=== PATIENT | female | born 1945 | race Caucasian/White ===

== ENCOUNTER 2017-01-30 19:41 | Emergency (ER) | payer MEDICARE, OTHER ==
[2017-01-30 19:45] VITALS: BP 149/49
== END 2017-01-30 19:50 | disposition left against medical advice (07) ==
LOC: CC.ED 19:41
DX: Z53.21 Procedure and treatment not carried out due to patient leaving prior to being seen by health care provider (principal)

== ENCOUNTER 2017-11-11 08:33 | Emergency (ER) | payer MEDICARE, OTHER ==
[2017-11-11 08:47] VITALS: BP 124/59
[2017-11-11] MEDS: Diphtheria,Pertussis(Acell),Tetanus Vaccine 0.5 ML Syringe IM ONE (09:27)
--- NOTE | 2017-11-11 09:45 | EDM.PDOC ---
ED HPI GENERAL MEDICAL PROBLEM - General Chief Complaint: Upper Extremity Injury/Pain Stated Complaint: Fall, rib and elbow pain Time Seen by Provider: 11/11/17 09:11 Source of Information: Reports: Patient History Limitations: Reports: No Limitations - History of Present Illness INITIAL COMMENTS - FREE TEXT/NARRATIVE: This patient is a 72 year old female that presents to the ER. Patient reports that she was walking down the steps last night at 10pm when she missed a step and fell down one step. Patient reports landing on her left side. Patient reports left lateral chest pain from fall and left upper and lower arm pain. Patient denies hitting her head, loc, n, v, vision changes, neck pain, sob, back pain, abd pain, urinary/bowel incontinence or changes. Patient is alert and oriented. Pulses +2, cap refill <2 sec, sensory intact. Neurovascular intact. ROM of the LUE is intact, but painful. Onset Date: 11/10/17 Onset Time: 22:00 Location: Reports: Chest, Upper Extremity, Left Front/Back Body Image: 1 - pain 2 - pain Quality: Reports: Ache Severity: Moderate Improves with: Reports: Immobilization Worsens with: Reports: Movement Associated Symptoms: Denies: Confusion, Chest Pain, Cough, cough w sputum, Diaphoresis, Fever/Chills, Headaches, Loss of Appetite, Malaise, Nausea/Vomiting , Rash, Seizure, Shortness of Breath, Syncope, Weakness Right Elbow Pain Score (Numeric/FACES): 8 - Related Data Allergies Allergy/AdvReac Type Severity Reaction Status Date / Time acetaminophen Allergy Nausea and Verified 11/11/17 08:35 [From Tylenol-Codeine #3] Vomiting ceftriaxone sodium Allergy Rash Verified 11/11/17 08:35 [From Rocephin] codeine phosphate Allergy Nausea and Verified 11/11/17 08:35 [From Tylenol-Codeine #3] Vomiting levofloxacin [From Levaquin] Allergy Rash Verified 11/11/17 08:35 pentazocine lactate Allergy Vomiting Verified 11/11/17 08:35 [From Talwin] propoxyphene HCl Allergy Vomiting Verified 11/11/17 08:35 [From Darvon] Home Meds: Home Meds Ascorbic Acid [Vitamin C] 1,000 mg PO DAILY 10/28/14 [History] Cholecalciferol (Vitamin D3) [Vitamin D3] 4,000 unit PO BEDTIME 10/28/14 [ History] Lisinopril/Hydrochlorothiazide [Lisinopril-Hctz 10-12.5 mg Tab] 12.5 mg PO BEDTIME 10/28/14 [History] Magnesium 500 mg PO DAILY 10/28/14 [History] Meloxicam 15 mg PO DAILY 10/28/14 [History] Metoprolol Tartrate [Lopressor] 12.5 mg PO BID 10/28/14 [History] Sertraline HCl 50 mg PO BEDTIME 10/28/14 [History] amLODIPine Besylate [Amlodipine Besylate] 5 mg PO DAILY 10/28/14 [History] metFORMIN [Glucophage XR] 1,000 mg PO QAM 10/28/14 [History] metFORMIN [Glucophage XR] 500 mg PO BEDTIME 10/28/14 [History] Alendronate Sodium [Fosamax] 70 mg PO WEEKLY 11/11/17 [History] Aspirin [Halfprin] 81 mg PO DAILY 11/11/17 [History] Naproxen Sodium [Aleve] 440 mg PO DAILY 11/11/17 [History] Past Medical History HEENT History: Reports: Impaired Vision Cardiovascular History: Reports: Aneurysm 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: Musculoskeletal History: Reports: Arthritis, Fracture - Past Surgical History Other Cardiovascular Surgeries/Procedures: aneursym repair Social & Family History - Family History Family Medical History: Noncontributory - Tobacco Use Smoking Status *Q: Current Every Day Smoker Years of Tobacco use: 45 Packs/Tins Daily: 1 - Caffeine Use Caffeine Use: Reports: Coffee, Soda - Recreational Drug Use Recreational Drug Use: No Review of Systems - Review of Systems Review Of Systems: See Below Constitutional: Reports: No Symptoms Eyes: Reports: No Symptoms Ears: Reports: No Symptoms Nose: Reports: No Symptoms Mouth/Throat: Reports: No Symptoms Respiratory: Reports: No Symptoms Cardiovascular: Reports: No Symptoms GI/Abdominal: Reports: No Symptoms Genitourinary: Reports: No Symptoms Musculoskeletal: Reports: Shoulder Pain (left anterior near left upper arm), Arm Pain (left lower and upper), Other (left lateral chest pain) Skin: Reports: Wound (abrasion left billings anterior) Neurological: Reports: No Symptoms Psychiatric: Reports: No Symptoms ED EXAM, GENERAL - Physical Exam Exam: See Below Exam Limited By: No Limitations General Appearance: Alert, WD/WN, No Apparent Distress Eye Exam: Bilateral Eye: EOMI, PERRL Ears: Normal External Exam, Normal Canal, Hearing Grossly Normal, Normal TMs Ear Exam: Bilateral Ear: Auricle Normal, Canal Normal, TM normal Nose: Normal Inspection, Normal Mucosa, No Blood Throat/Mouth: Normal Inspection, Normal Lips, Normal Teeth, Normal Gums, Normal Oropharynx, Normal Voice, No Airway Compromise Head: Atraumatic, Normocephalic Neck: Normal Inspection, Supple, Non-Tender, Full Range of Motion Respiratory/Chest: No Respiratory Distress, Lungs Clear, Normal Breath Sounds, No Accessory Muscle Use, Other (left lateral chest pain, tenderness. No flail chest. ). No: Accessory Muscle Use, Splinting, Prolonged Expiration Cardiovascular: Normal Peripheral Pulses, Regular Rate, Rhythm, No Edema, No Gallop, No JVD, No Murmur, No Rub Peripheral Pulses: 2+: Radial (L), Radial (R), Posterior Tibial (L), Posterior Tibial (R) GI/Abdominal: Normal Bowel Sounds, Soft, Non-Tender, No Organomegaly, No Distention, No Abnormal Bruit, No Mass, Pelvis Stable (Female) Exam: Deferred Rectal (Female) Exam: Deferred Back Exam: Normal Inspection, Full Range of Motion. No: CVA Tenderness (L), CVA Tenderness (R), Decreased Range of Motion, Muscle Spasm, Paraspinal Tenderness, Vertebral Tenderness Extremities: Normal Inspection, Normal Range of Motion, No Pedal Edema, Normal Capillary Refill, Arm Pain (left upper pain, left lower extremity pain, tenderness mild. ROM intact. ) Neurological: Alert, Oriented, CN II-XII Intact, Normal Cognition, Normal Gait, No Motor/Sensory Deficits Psychiatric: Normal Affect, Normal Mood Skin Exam: Warm, Dry, Normal Color, No Rash, Wound/Incision (left anterior billings abrasion) Lymphatic: No Adenopathy Course - Vital Signs Last Recorded V/S: Last Vital Signs Temp 96 F 11/11/17 08:42 Pulse 58 L 11/11/17 08:42 Resp 18 11/11/17 08:42 BP 124/59 L 11/11/17 08:42 Pulse Ox 96 11/11/17 08:42 - Orders/Labs/Meds Orders: Active Orders 24 hr Category Date Time Status Vaccines to be Administered [RC] PER UNIT ROUTINE Care 11/11/17 09:17 Active Forearm 2V Lt [CR] Stat Exams 11/11/17 09:16 Ordered Humerus Lt [CR] Stat Exams 11/11/17 09:16 Ordered Ribs 2V w Chest Lt [CR] Stat Exams 11/11/17 09:16 Ordered Meds: Medications Discontinued Medications Generic Name Dose Route Start Last Admin Trade Name Freq PRN Reason Stop Dose Admin Diphtheria/Tetanus/Acell Pertussis 0.5 ml 11/11/17 09:17 11/11/17 09:27 Adacel IM 11/11/17 09:18 0.5 ml .ONCE ONE Administration - Radiology Interpretation Free Text/Narrative:: Left arm: Left elbow fx. Departure - Departure Time of Disposition: 10:12 Disposition: Home, Self-Care 01 Condition: Fair Clinical Impression: Elbow fracture, left Qualifiers: Encounter type: initial encounter Fracture type: closed Qualified Code(s): S42.402A - Unspecified fracture of lower end of left humerus, initial encounter for closed fracture - Discharge Information *PRESCRIPTION DRUG MONITORING PROGRAM REVIEWED*: No *COPY OF PRESCRIPTION DRUG MONITORING REPORT IN PATIENT WALI: No Referrals: Josseline Bacon PATIENT CARE TECHNICIAN [Primary Care Provider] - Forms: ED Department Discharge Additional Instructions: Followup with [facility]. Call tomorrow for appointment. [phone] Return to the ER for worsening of condition or any emergent concerns Rest Ice Elevate Sling Motrin or Tylenol for Pain - My Orders Last 24 Hours: My Active Orders 11/11/17 09:16 Forearm 2V Lt [CR] Stat Humerus Lt [CR] Stat Ribs 2V w Chest Lt [CR] Stat 11/11/17 09:17 Vaccines to be Administered [RC] PER UNIT ROUTINE - Assessment/Plan Last 24 Hours: My Active Orders 11/11/17 09:16 Forearm 2V Lt [CR] Stat Humerus Lt [CR] Stat Ribs 2V w Chest Lt [CR] Stat 11/11/17 09:17 Vaccines to be Administered [RC] PER UNIT ROUTINE Plan: PLEASE SEE RN NOTE FOR PFSH.
== END 2017-11-11 10:35 | disposition home or self-care (01) ==
LOC: CC.ED 08:33
DX: S52.002A Unspecified fracture of upper end of left ulna, initial encounter for closed fracture (principal); Z23 Encounter for immunization; Z79.84 Long term (current) use of oral hypoglycemic drugs; Z79.82 Long term (current) use of aspirin; Z88.5 Allergy status to narcotic agent; Z88.8 Allergy status to other drugs, medicaments and biological substances; Z88.1 Allergy status to other antibiotic agents; W10.9XXA Fall (on) (from) unspecified stairs and steps, initial encounter
CPT/HCPCS: 71101-LT; 73060-LT; 73090-LT; 90471; 90715; 99283; 99284

== ENCOUNTER 2017-12-03 17:15 | Emergency (ER) | payer MEDICARE, OTHER ==
--- NOTE | 2017-12-03 17:47 | EDM.PDOC ---
ED HPI GENERAL MEDICAL PROBLEM - General Chief Complaint: Fever Stated Complaint: fever Time Seen by Provider: 12/03/17 17:35 Source of Information: Reports: Patient History Limitations: Reports: No Limitations - History of Present Illness Onset: Other (reports surgery to LEFT elbow 11/27/17. has felt feverish since then) Onset Date: 11/27/17 Location: Reports: Generalized Severity: Moderate Improves with: Reports: None - Related Data Allergies Allergy/AdvReac Type Severity Reaction Status Date / Time acetaminophen Allergy Nausea and Verified 12/03/17 17:25 [From Tylenol-Codeine #3] Vomiting ceftriaxone sodium Allergy Rash Verified 12/03/17 17:25 [From Rocephin] codeine phosphate Allergy Nausea and Verified 12/03/17 17:25 [From Tylenol-Codeine #3] Vomiting levofloxacin [From Levaquin] Allergy Rash Verified 12/03/17 17:25 pentazocine lactate Allergy Vomiting Verified 12/03/17 17:25 [From Talwin] propoxyphene HCl Allergy Vomiting Verified 12/03/17 17:25 [From Darvon] Home Meds: Home Meds Ascorbic Acid [Vitamin C] 1,000 mg PO DAILY 10/28/14 [History] Cholecalciferol (Vitamin D3) [Vitamin D3] 4,000 unit PO BEDTIME 10/28/14 [ History] Lisinopril/Hydrochlorothiazide [Lisinopril-Hctz 10-12.5 mg Tab] 12.5 mg PO BEDTIME 10/28/14 [History] Magnesium 500 mg PO DAILY 10/28/14 [History] Meloxicam 15 mg PO DAILY 10/28/14 [History] Metoprolol Tartrate [Lopressor] 12.5 mg PO BID 10/28/14 [History] Sertraline HCl 50 mg PO BEDTIME 10/28/14 [History] amLODIPine Besylate [Amlodipine Besylate] 5 mg PO DAILY 10/28/14 [History] metFORMIN [Glucophage XR] 1,000 mg PO QAM 10/28/14 [History] metFORMIN [Glucophage XR] 500 mg PO BEDTIME 10/28/14 [History] Alendronate Sodium [Fosamax] 70 mg PO WEEKLY 11/11/17 [History] Aspirin [Halfprin] 81 mg PO DAILY 11/11/17 [History] Naproxen Sodium [Aleve] 440 mg PO DAILY 11/11/17 [History] Past Medical History HEENT History: Reports: Impaired Vision Cardiovascular History: Reports: 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 Denies: Chest Pain Endocrine: Reports: Fatigue GI/Abdominal: Denies: Abdominal Pain, Diarrhea, Nausea, Vomiting : Denies: Dysuria Musculoskeletal: Reports: Other (LEFT arm pain) Skin: Reports: Other (incision to LEFT elbow) Neurological: Denies: Confusion, Numbness, Weakness ED EXAM, SEPSIS - Physical Exam Exam: See Below Exam Limited By: No Limitations General Appearance: Alert, WD/WN, No Apparent Distress Respiratory/Chest: No Respiratory Distress Cardiovascular: Normal Peripheral Pulses, Regular Rate, Rhythm, No Edema Peripheral Pulses: 2+: Radial (L), Radial (R) Extremities: Other (surgical incision to LEFT elbow closed with emma. there is redness and scant discharge at the sight. the edges are well approximated. CMS intact proximal and distal to the wound. extremities otherwise without acute findings.) Neurological: Alert, Oriented Course - Vital Signs Last Recorded V/S: Last Vital Signs Temp 37.8 C 12/03/17 17:31 Pulse 78 12/03/17 17:31 Resp 18 12/03/17 17:31 BP 141/61 H 12/03/17 17:31 Pulse Ox 96 12/03/17 17:31 - Orders/Labs/Meds Labs: Laboratory Tests 12/03/17 12/03/17 Range/Units 17:25 17:25 WBC 9.2 (5.0-10.0) 10^3/uL RBC 3.95 L (4.00-5.50) 10^6/uL Hgb 11.3 L (12.0-16.0) g/dL Hct 35.1 L (37.0-47.0) % MCV 88.9 (82.0-94.0) fL MCH 28.6 (27.0-32.0) pg MCHC 32.2 L (33.0-38.0) g/dL RDW Coeff of Roland 14.0 (11.0-15.0) % Plt Count 254 (150-400) 10^3/uL Neut % (Auto) 67.9 (35-85) % Lymph % (Auto) 20.2 (10-55) % Gibson % (Auto) 8.4 (0-16) % Eos % (Auto) 3.3 (0-5) % Baso % (Auto) 0.2 (0-3) % Neut # (Auto) 6.25 (1.80-7.00) 10^3/uL Lymph # (Auto) 1.86 (1.00-4.80) 10^3/uL Gibson # (Auto) 0.77 (0.00-0.80) 10^3/uL Eos # (Auto) 0.30 (0.00-0.45) 10^3/uL Baso # (Auto) 0.02 10^3/uL Sodium 134 L (136-145) mEq/L Potassium 4.1 (3.5-5.0) mEq/L Chloride 99 (98-106) mEq/L Carbon Dioxide 29 (21-32) mmol/L BUN 11 (7-18) mg/dL Creatinine 0.6 (0.6-1.0) mg/dL Est Cr Clr Drug Dosing TNP Estimated GFR (MDRD) > 60 (>=60) mL/min Glucose 153 H (75-99) mg/dL Calcium 8.5 (8.4-10.1) mg/dL Meds: Medications Discontinued Medications Generic Name Dose Route Start Last Admin Trade Name Freq PRN Reason Stop Dose Admin Amoxicillin 500 mg 12/03/17 18:02 Amoxil PO 12/03/17 18:03 ONETIME ONE Oxycodone/Acetaminophen 1 tab 12/03/17 18:02 Percocet 325-5 Mg PO 12/03/17 18:03 ONETIME ONE Departure - Departure Time of Disposition: 18:04 Disposition: Home, Self-Care 01 Clinical Impression: Cellulitis - Discharge Information *PRESCRIPTION DRUG MONITORING PROGRAM REVIEWED*: Not Applicable *COPY OF PRESCRIPTION DRUG MONITORING REPORT IN PATIENT WALI: Not Applicable Instructions: Cellulitis, Adult Forms: ED Department Discharge - Assessment/Plan Assessment:: Cellulitis. Labs return with WBC count WNL. No other gross abnormalities. Rx for PO amoxicillin 500 mg PO BID x 5 days, first dose in ED. Patient has FU with surgeon on 12/05/17. I advised the patient to rest, hydrate, fu with surgeon at scheduled time, go to closest ER if change or worse. Patient and spouse at bedside report understanding and agreement with plan. DC home stable in care of spouse.
[2017-12-03 17:49] LABS: CHLORIDE,CL 99 mEq/L (98-106); SODIUM,NA 134 mEq/L (136-145)
[2017-12-03 17:54] VITALS: BP 141/61
[2017-12-03] MEDS: Acetaminophen/oxyCODONE 325-5 MG Tab PO ONE (18:17)
[2017-12-03] MEDS: Amoxicillin 500 MG Cap PO ONE (18:17)
== END 2017-12-03 18:26 | disposition home or self-care (01) ==
LOC: CC.ED 17:15
DX: L03.114 Cellulitis of left upper limb (principal); Z88.6 Allergy status to analgesic agent; Z88.1 Allergy status to other antibiotic agents; Z88.5 Allergy status to narcotic agent; Z79.84 Long term (current) use of oral hypoglycemic drugs; Z79.899 Other long term (current) drug therapy
CPT/HCPCS: 36415; 80048; 85025; 99283; A9270